=== PATIENT | female | born 2000 ===

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

== ENCOUNTER 2018-01-21 12:42 | Emergency (ER) | payer SELFPAY ==
[2018-01-21 12:58] VITALS: BP 137/75; PULSE 88; RESP 18; TEMP 98.6; O2SAT 100
--- NOTE | 2018-01-21 14:02 | ED PDOC ---
HPI: Abdomen Time Seen by Provider: 01/21/18 13:14 Chief Complaint (Nursing): Abdominal Pain Chief Complaint (Provider): Abdominal Pain History Per: Patient History/Exam Limitations: no limitations Onset/Duration Of Symptoms: Days (7 days ago) Current Symptoms Are (Timing): Still Present Location Of Pain/Discomfort: Suprapubic Additional Complaint(s): 17 yo female presents to the ED complaining of lower abdominal pain, residing in the suprapubic/pelvic pain, onset of 1 week ago. Patient describes pain as intermittent, but has not taken any medication for the pain. Of note, patient took an at home test last week that resulted in a positive result. She denies any vomiting, diarrhea, fever, dysuria, or vaginal bleeding. : 2 Para: 1 Miscarriage: 0 Past Medical History Reviewed: Historical Data, Nursing Documentation, Vital Signs Vital Signs: Last Vital Signs Temp 98.6 F 01/21/18 12:54 Pulse 88 01/21/18 12:54 Resp 18 01/21/18 12:54 BP 137/75 01/21/18 12:54 Pulse Ox 100 01/21/18 16:31 - Medical History PMH: HTN (no meds), Hypothyroidism (no meds) - Family History Family History: States: Unknown Family Hx - Living Arrangements Living Arrangements: With Family - Social History Current smoker - smoking cessation education provided: No Ex-Smoker (has not smoked in the last 12 months): No Alcohol: None Drugs: Denies - Home Medications Home Medications: Ambulatory Orders Medication Instructions Recorded No Known Home Med 08/22/17 - Allergies Allergies/Adverse Reactions: Allergies Allergy/AdvReac Type Severity Reaction Status Date / Time No Known Allergies Allergy Verified 08/22/17 17:25 Review of Systems ROS Statement: Except As Marked, All Systems Reviewed And Found Negative Constitutional: Negative for: Fever Gastrointestinal: Positive for: Abdominal Pain (suprarubic/pelvic). Negative for: Nausea, Vomiting, Diarrhea Genitourinary Female: Negative for: Dysuria, Frequency, Incontinence, Vaginal Bleeding Physical Exam - Reviewed Nursing Documentation Reviewed: Yes Vital Signs Reviewed: Yes - Physical Exam Appears: Positive for: Well, Non-toxic, No Acute Distress Head Exam: Positive for: ATRAUMATIC, NORMAL INSPECTION, NORMOCEPHALIC Skin: Positive for: Normal Color, Warm, DRY Eye Exam: Positive for: EOMI, Normal appearance, PERRL ENT: Positive for: Normal ENT Inspection Neck: Positive for: Normal, Painless ROM Cardiovascular/Chest: Positive for: Regular Rate, Rhythm. Negative for: Murmur Respiratory: Positive for: Normal Breath Sounds. Negative for: Respiratory Distress Gastrointestinal/Abdominal: Positive for: Normal Exam, Soft, Tenderness (mild suprapubic tenderness) Back: Positive for: Normal Inspection Extremity: Positive for: Normal ROM. Negative for: Pedal Edema, Deformity Neurologic/Psych: Positive for: Alert, Oriented. Negative for: Motor/Sensory Deficits - Laboratory Results Result Diagrams: 01/21/18 14:30 01/21/18 14:30 - ECG O2 Sat by Pulse Oximetry: 100 (RA) Pulse Ox Interpretation: Normal Medical Decision Making Medical Decision Making: Time: --13:53 Impression: --Abdominal pain in Differential: --UTI vs Complications of Plan: --Labs --Urine Dip -- Test --Ultrasound OB Transvaginal Reassess --16:24 discussed findings with the radiologist Dr. Martinez. --16:28 Patient left without treatment completed 1630 Patient was called by the general accounting clerk Ellie and left voice mail with call back number with instructions to call back. Scribe Attestation: Documented by Ivan Hassan acting as a scribe for Evangelina Shaikh MD. Provider Attestation: All medical record entries made by the Scribe were at my direction and personally dictated by me. I have reviewed the chart and agree that the record accurately reflects my personal performance of the history, physical exam, medical decision making, and the department course for this patient. I have also personally directed, reviewed, and agree with the discharge instructions and disposition. Disposition - Clinical Impression Clinical Impression: Abdominal pain during - Patient ED Disposition Is Patient to be Admitted: No Counseled Patient/Family Regarding: Studies Performed - Disposition Disposition: Left W/O Treatment Disposition Time: 16:20 Condition: STABLE
[2018-01-21 14:45] LABS: BASO % 0.4 % (0.0-2.0); EOS % 0.6 % (0.0-4.0); HEMOGLOBIN 14.2 g/dL (12.0-16.0); LYMPH # 1.5 K/uL (1.0-4.3); LYMPH % 31.7 % (20.0-40.0); MEAN CELL VOLUME 83.7 fl (81.0-99.0); MEAN CORPUSCULAR HEMOGLOBIN 27.9 pg (27.0-31.0); MEAN CORPUSCULAR HGB CONC 33.4 g/dL (33.0-37.0); MONO # 0.5 K/uL (0.0-0.8); MONO % 10.7 % (0.0-10.0); NEUT # 2.6 K/uL (1.8-7.0); NEUT % 56.6 % (50.0-75.0); NRBC % 0.3 % (0.0-0.0); RBC 5.07 Mil/uL (3.80-5.20); RED CELL DISTRIBUTION WIDTH 14.9 % (11.5-14.5); WHITE BLOOD COUNT 4.6 K/uL (4.8-10.8)
[2018-01-21 14:49] LABS: BLOOD UREA NITROGEN 15 mg/dl (7-17); CALCIUM 9.8 mg/dL (8.4-10.2); GFR AFRICAN-AMERICAN > 60; GFR NON-AFRICAN AMERICAN > 60
--- NOTE | 2018-01-21 17:16 | US ---
HISTORY: Lower abdominal pain TECHNIQUE: Transvaginal sonographic evaluation of the pelvis performed FINDINGS: UTERUS: The uterus is anteverted measuring approximately 8.0 x 5.7 x 6.3 cm. There is a gestational sac containing a small yolk sac within the endometrial canal. No pole is identified. Measurements are as follows: Gestational sac: MSD = 0.91 cm = out of range for dating Yolk sac: 0.2 cm pole: Not detected Heart motion: Not detected Gestational age estimated 5 weeks 3 days based on LMP BEBE based on LMP = 09/20/2018 CERVIX: Cervix is closed measuring approximately 4.4 cm RIGHT OVARY: Measures 2.5 x 2.4 x cm. Normal flow. . Within the right ovary, there a small approximately 7.9 x 7.7 mm hypoechoic structure with increased peripheral vascularity the appearance of which suggests ring of fire sign which is a typical finding in ectopic . Note also that the presence of a yolk sac within the gestational sac typically precludes an ectopic , the possibility of a heterotopic not excluded. Clinical correlation recommended. Follow-up serial serum beta HCG and serial transvaginal ultrasound recommended at short interval to assess for development of viable intrauterine gestation and exclude ectopic . . PRODUCT MGR consultation recommended LEFT OVARY: Measures 2.3 x 1.6 x 3.0 cm. No solid mass. Normal flow. FREE FLUID: No significant free fluid noted. IMPRESSION: In situ gestational sac with small yolk sac however pole not identified. The findings are out of range to date accurately. Additionally, there is a small elliptical shaped anechoic focus in the right ovary that measures approximately 7.9mm x 7.7mm which could conceivably represent a corpus luteum cyst of however there is increased peripheral vascularity about the ovary which is suggests a ring of fire sign which is typical finding and ectopic . Note also that the presence of a yolk sac within the gestational sac typically precludes an ectopic , the possibility of a heterotopic not excluded. Clinical correlation recommended. Intrauterine and ectopic (heterotopic ) which is quite rare though not completely excluded. Clinical correlation recommended. software performance engineer consultation also suggested with repeat pelvic ultrasound at short interval to assess for development of viable intrauterine gestation. . Note these findings were discussed with Dr. Shaikh and at approximately 4:10 p.m. with written down and read back verification.
== END 2018-01-21 16:00 | disposition left against medical advice (07) ==
LOC: SUPCPDRO 12:42 → H.ER 12:42
DX: O26.899 Other specified pregnancy related conditions, unspecified trimester (principal); I10 Essential (primary) hypertension; O00.90 Unspecified ectopic pregnancy without intrauterine pregnancy

== ENCOUNTER 2018-01-21 17:33 | Emergency (ER) | payer SELFPAY ==
[2018-01-21 17:53] VITALS: BP 121/56; PULSE 78; RESP 18; TEMP 98.5; O2SAT 100
[2018-01-21 17:55] VITALS: BMI 21.5
--- NOTE | 2018-01-21 18:34 | ED PDOC ---
HPI: Abdomen Time Seen by Provider: 01/21/18 17:35 Chief Complaint (Nursing): Abdominal Pain Chief Complaint (Provider): Abominal Pain History Per: Patient History/Exam Limitations: no limitations Onset/Duration Of Symptoms: Days Outside of [place] travel?: No Current Symptoms Are (Timing): Still Present Additional Complaint(s): Patient has been seen by provider and an ultrasound was performed for evaluation of the abdominal pain. Patient left before her treatment could be completed and was called and told to return to the emergency department which she did. Patient denies any changes fro previous visit 1 hour ago. See previous chart for more details. Abnormal Vaginal Bleeding: No Past Medical History Reviewed: Historical Data, Nursing Documentation, Vital Signs Vital Signs: Last Vital Signs Temp 98.5 F 01/21/18 17:52 Pulse 78 01/21/18 17:52 Resp 18 01/21/18 17:52 BP 121/56 L 01/21/18 17:52 Pulse Ox 100 01/21/18 18:42 - Medical History PMH: HTN (no meds), Hypothyroidism (no meds) - Surgical History Surgical History: No Surg Hx - Family History Family History: States: Unknown Family Hx - Social History Current smoker - smoking cessation education provided: No Ex-Smoker (has not smoked in the last 12 months): No Alcohol: None Drugs: Denies - Home Medications Home Medications: Ambulatory Orders Medication Instructions Recorded No Known Home Med 08/22/17 - Allergies Allergies/Adverse Reactions: Allergies Allergy/AdvReac Type Severity Reaction Status Date / Time No Known Allergies Allergy Verified 08/22/17 17:25 Review of Systems ROS Statement: Except As Marked, All Systems Reviewed And Found Negative Constitutional: Negative for: Fever Gastrointestinal: Positive for: Abdominal Pain. Negative for: Nausea, Vomiting , Diarrhea Genitourinary Female: Positive for: Dysuria, Frequency, Incontinence, Vaginal Bleeding Physical Exam - Reviewed Nursing Documentation Reviewed: Yes Vital Signs Reviewed: Yes - Physical Exam Appears: Positive for: Non-toxic, No Acute Distress Head Exam: Positive for: ATRAUMATIC, NORMAL INSPECTION, NORMOCEPHALIC Skin: Positive for: Normal Color, Warm, Dry. Negative for: Rash Eye Exam: Positive for: Normal appearance, EOMI, PERRL ENT: Positive for: Normal ENT Inspection. Negative for: Nasal Congestion, Tonsillar Exudate Neck: Positive for: Normal, Painless ROM, Supple Cardiovascular/Chest: Positive for: Regular Rate, Rhythm, Chest Non Tender. Negative for: Tachycardia Respiratory: Positive for: Normal Breath Sounds. Negative for: Rales, Rhonchi, Wheezing, Respiratory Distress Gastrointestinal/Abdominal: Positive for: Bowel Sounds, Soft, Tenderness (mild suprapubic tenderness). Negative for: Mass, Guarding, Rebound Back: Positive for: Normal Inspection. Negative for: L CVA Tenderness, R CVA Tenderness Extremity: Positive for: Normal ROM. Negative for: Tenderness, Deformity, Swelling Neurologic/Psych: Positive for: Alert, Oriented, Gait - ECG O2 Sat by Pulse Oximetry: 100 Medical Decision Making Medical Decision Makin Initial Impression 17 y/o female presenting with abdominal pain in Initial Plan: * Type and Screen * Serum * BMP * Upreg * Udip * CBC * US OB Transvaginal * Reevaluation Findings discussed with OB operations dispatcher and she reviewed US with me. She recommends wait for beta quantitative results and suggests that it is unlikely that patient has ectopic . Pending beta quant and and final disposition from OB- Dr. Montaño Documented by jose Tran acting as a scribe for Evangelina Shaikh MD. All medical record entries made by the Scribe were at my direction and personally dictated by me. I have reviewed the chart and agree that the record accurately reflects my personal performance of the history, physical exam, medical decision making, and the department course for this patient. I have also personally directed, reviewed, and agree with the discharge instructions and disposition. Disposition - Clinical Impression Clinical Impression: Abdominal pain during - Patient ED Disposition Is Patient to be Admitted: Transfer of Care Counseled Patient/Family Regarding: Studies Performed, Diagnosis - Disposition Disposition: Transfer of Care Disposition Time: 19:00 Condition: STABLE Patient Signed Over To: Peterson Rodriguez Handoff Comments: pending Betaquant and OB consult
--- NOTE | 2018-01-21 19:50 | ED PDOC ---
- ECG O2 Sat by Pulse Oximetry: 100 Pulse Ox Interpretation: Normal Medical Decision Making Medical Decision MakinPM Case endorsed to me by Dr. Shaikh pending beta-hcg. 730PM Pt. comfortable in bed, states she wants to go home. Beta-hcg is ~9000. Case discussed with Dr. Montaño who reviewed images and beta and determined that she is unlikley to have a heterotopic with such a low beta. Recommended repeat testing in 1 week, or return to ER sooner for VB, worsening pain, or other concerning symptoms. Patient verbalizes understanding of this and understands to followup. Pt. applied for [facility]. Disposition - Clinical Impression Clinical Impression: Abdominal pain during - POA Present On Arrival: None - Disposition Disposition: Routine/Home Disposition Time: 19:49 Condition: STABLE Additional Instructions: Yousif el seguimiento en TRUNG SEMANA para trung prueba de carlo y un ultrasonido de repeticin en sin gineclogo. Si experimenta un empeoramiento del dolor, sangrado vaginal u otros sntomas preocupantes, vuelva a la oriana de emergencias. Instructions: Symptoms, - The First Month, Round Ligament Pain Forms: [facility] (Spanish) Print Language: BOTSWANAN
== END 2018-01-21 20:04 | disposition home or self-care (01) ==
LOC: H.ER 17:33
DX: O26.899 Other specified pregnancy related conditions, unspecified trimester (principal); I10 Essential (primary) hypertension

== ENCOUNTER 2018-02-08 12:57 | Emergency (ER) | payer OTHER ==
[2018-02-08 12:57] VITALS: BMI 21.5
[2018-02-08 13:06] VITALS: BP 126/81; PULSE 113; RESP 18; TEMP 98.4; O2SAT 100
--- NOTE | 2018-02-08 13:22 | ED PDOC ---
HPI: Female Pain Time Seen by Provider: 02/08/18 13:09 Chief Complaint (Nursing): Abdominal Pain History Per: Patient (Lower abd pain x 4 days. Denies vaginal bleeding. Seen in ED 01/21 with US showing possible heterotrophic pregancy. Has not had f/u since 01/21. Denies dysuria or frequency.) Current Symptoms Are (Timing): Intermittent Episodes Severity: Mild Pain Scale Rating Of: 3 Quality Of Discomfort: Cramping Associated Symptoms: denies: Nausea, Vomiting, Diarrhea, Urinary Symptoms Abnormal Vaginal Bleeding: No Past Medical History Vital Signs: Last Vital Signs Temp 98.4 F 02/08/18 13:03 Pulse 113 H 02/08/18 13:03 Resp 18 02/08/18 13:03 BP 126/81 02/08/18 13:03 Pulse Ox 100 02/08/18 13:03 - Medical History PMH: HTN (no meds), Hypothyroidism (no meds) - Family History Family History: States: Unknown Family Hx - Home Medications Home Medications: Ambulatory Orders Medication Instructions Recorded No Known Home Med 08/22/17 - Allergies Allergies/Adverse Reactions: Allergies Allergy/AdvReac Type Severity Reaction Status Date / Time No Known Allergies Allergy Verified 02/08/18 13:03 Review of Systems Gastrointestinal: Positive for: Abdominal Pain Genitourinary Female: Negative for: Dysuria, Frequency, Vaginal Bleeding Musculoskeletal: Negative for: Back Pain Physical Exam - Physical Exam Appears: Positive for: Non-toxic, No Acute Distress Skin: Positive for: Normal Color, Warm, DRY Gastrointestinal/Abdominal: Positive for: Bowel Sounds, Soft. Negative for: Tenderness Extremity: Positive for: Normal ROM Neurologic/Psych: Positive for: Alert, Oriented - ECG O2 Sat by Pulse Oximetry: 100 Disposition - Clinical Impression Clinical Impression: Threatened - Patient ED Disposition Is Patient to be Admitted: No - Disposition Referrals: [facility] [Outside] Disposition: Routine/Home Disposition Time: 15:01 Condition: FAIR Instructions: Threatened Miscarriage Forms: [facility] (Korean) Print Language: RUSSIAN
--- NOTE | 2018-02-08 14:58 | US ---
PROCEDURE: OB Pelvic Ultrasound HISTORY: r/o ectopic. LMP 12/14/2017. COMPARISON: 01/21/2018 FINDINGS: UTERUS: Single Live intrauterine gestation. CRL equivalent to 7 weeks 6 days gestation Gestational sac diameter equivalent to 7 weeks wks/4 days gestation age (Ultrasound estimated): 7 weeks 5 days 0 weeks 4 days Date of delivery (Ultrasound estimated) : 09/22/2018 Heart rate: 190 bpm. Marixa-gestational hemorrhage: None. Uterus measures 10.9 x 6.8 x 5.4 cm. No mass CERVIX: Long 3.6 and closed. No cervical abnormality seen. RIGHT OVARY: Measures 3.5 x 2.7 x 1.5 cm. No mass. Normal flow. LEFT OVARY: Measures 2.8 x 1.7 x 1 point sick cm. No mass. Normal flow. FREE FLUID: None. OTHER FINDINGS: No adnexal or ectopic is identified. Since the prior exam, the embryonic/ growth is within normal limits IMPRESSION: Single live intrauterine gestation - estimated ultrasound gestational age 7 weeks 5 days 0 weeks 4 days with an estimated date of delivery 09/22/2018. No identifiable ectopic noted. No suspect adnexal masses appreciated
== END 2018-02-08 15:19 | disposition home or self-care (01) ==
LOC: H.ER 12:57
DX: O20.0 Threatened abortion (principal); Z3A.01 Less than 8 weeks gestation of pregnancy; O16.1 Unspecified maternal hypertension, first trimester

== ENCOUNTER 2018-04-07 19:13 | Emergency (ER) | payer MEDICAID, OTHER ==
[2018-04-07 19:13] VITALS: BMI 21.5
[2018-04-07 19:22] VITALS: PULSE 76; RESP 16; O2SAT 100
--- NOTE | 2018-04-07 19:42 | ED PDOC ---
Lower Extremity Pain/Injury Time Seen by Provider: 04/07/18 19:30 Chief Complaint (Nursing): Lower Extremity Problem/Injury Chief Complaint (Provider): Left ankle pain History Per: Patient History/Exam Limitations: no limitations Onset/Duration Of Symptoms: Days (x2 ) Current Symptoms Are (Timing): Still Present Additional Complaint(s): 17 year old female presents to ED complaining of left ankle pain. Patient reports she is 16 weeks and denies falls or trauma. She indicates pain with touch in the anterior aspect of the ankle. PCP: none provided Past Medical History Reviewed: Historical Data, Nursing Documentation, Vital Signs Vital Signs: Last Vital Signs Temp 98.8 F 04/07/18 19:19 Pulse 76 04/07/18 19:19 Resp 16 04/07/18 19:19 BP Pulse Ox 100 04/07/18 19:19 - Medical History PMH: HTN (no meds), Hypothyroidism (no meds) - Surgical History Surgical History: No Surg Hx - Family History Family History: States: Unknown Family Hx - Home Medications Home Medications: Ambulatory Orders Medication Instructions Recorded Acetaminophen [Acetaminophen Extra 2 tab PO Q6 PRN #24 tablet 04/07/18 Strength] - Allergies Allergies/Adverse Reactions: Allergies Allergy/AdvReac Type Severity Reaction Status Date / Time No Known Allergies Allergy Verified 04/07/18 19:19 Review of Systems ROS Statement: Except As Marked, All Systems Reviewed And Found Negative Constitutional: Negative for: Other (trauma) Musculoskeletal: Positive for: Other (left ankle pain) Physical Exam - Reviewed Nursing Documentation Reviewed: Yes Vital Signs Reviewed: Yes - Physical Exam Appears: Positive for: Non-toxic, No Acute Distress Head Exam: Positive for: ATRAUMATIC, NORMAL INSPECTION, NORMOCEPHALIC Skin: Positive for: Normal Color Eye Exam: Positive for: Normal appearance Neck: Positive for: Normal, Painless ROM Extremity: Positive for: Normal ROM Neurologic/Psych: Positive for: Alert, Oriented Comments: LEFT ANKLE: (+) mild erythema, (+) tenderness to the anterior aspect of ankle, ( -) bony tenderness elicited, (-) swelling - ECG O2 Sat by Pulse Oximetry: 100 (RA) Pulse Ox Interpretation: Normal - Progress ED Course And Treament: duplex left leg: no dvt; no superficial thrombophlebitis Patient given air cast and instructions to f/u with podiatry clinic on monday Medical Decision Making Medical Decision Making: Initial Impression: left ankle pain Initial Plan: US lower extremities Scribe Attestation: Documented by Keaton Newton acting as a scribe for Emma NORIEGA. Provider Scribe Attestation: All medical record entries made by the Scribe were at my direction and personally dictated by me. I have reviewed the chart and agree that the record accurately reflects my personal performance of the history, physical exam, medical decision making, and the department course for this patient. I have also personally directed, reviewed, and agree with the discharge instructions and disposition. Disposition - Clinical Impression Clinical Impression: Ankle pain, left - Patient ED Disposition Is Patient to be Admitted: No - Disposition Referrals: Podiatry Clinic [Outside] Disposition: Routine/Home Disposition Time: 23:04 Condition: FAIR Prescriptions: Acetaminophen [Acetaminophen Extra Strength] 2 tab PO Q6 PRN #24 tablet PRN Reason: Pain, Moderate (4-7) Instructions: Tendonitis (DC) Forms: [employer] (Kazakh), [facility] ED School/Work Excuse
[2018-04-07 23:17] VITALS: TEMP 98.2
--- NOTE | 2018-04-07 23:39 | US ---
EXAM: US Duplex Left Lower Extremity Veins CLINICAL HISTORY: 17 years old, female; Pain; Leg, lower; Left; Additional info: Left ankle pain TECHNIQUE: Real-time duplex ultrasound scan of the left lower extremity veins integrating B-mode two-dimensional vascular structure, Doppler spectral analysis, color flow Doppler imaging and compression. COMPARISON: No relevant prior studies available. FINDINGS: Deep veins: No DVT in the visualized common femoral, femoral, proximal deep femoral or popliteal veins. The veins demonstrate normal color flow, are normally compressible, with normal phasic flow and/or augmentation response. Superficial veins: No thrombus in the visualized great saphenous vein. Soft tissues: No acute findings. IMPRESSION: No evidence of deep venous thrombosis in the visualized veins of the left lower extremity. Correlate clinically. Followup as warranted.
== END 2018-04-07 23:16 | disposition home or self-care (01) ==
LOC: H.ER 19:13
DX: M25.572 Pain in left ankle and joints of left foot (principal); E03.9 Hypothyroidism, unspecified; I10 Essential (primary) hypertension